=== PATIENT | female | born 1940 | race Caucasian/White ===

== ENCOUNTER 2017-02-10 04:42 | Emergency (ER) | payer OTHER ==
[~2017-02-10] VITALS: Ht 157.5 cm; Wt 75.8 kg
[~2017-02-10 04:42] MED LIST: AMLODIPINE BESY10 MG PO; ANASTROZOLE1 MG PO; CIPRO500 MG PO; EXTRA STRENGTH500 M1 PO; FEOSOL325 MG PO; IMODIUM MS REL1 EACH PO; K-DUR20 MEQ PO; LORTAB 5-325 M1 EACH PO; METOPROLOL TART25 MG PO; PANTOPRAZOLE SO40 MG PO; XANAX0.25 MG PO; XELODA500 MG PO
[2017-02-10 05:52] LABS: HEMATOCRIT 29.4 % (36.0-46.0); MCH 27.6 PG (29.0-34.0); MCV 89.1 FL (83-99); MEAN PLAT.VOLUME 9.9 uM^3 (9.5-12.4); PLATELET COUNT 298 K/uL (156-360); RBC DIS.WIDTH-CV 13.9 % (11.8-14.6); RBC DIS.WIDTH-SD 45.2 % (39-53); WHITE BLOOD COUNT 7.7 K/uL (4.1-10.2)
[2017-02-10 06:01] LABS: CHLORIDE 110 mEq/L (99-109); POTASSIUM 4.1 mEq/L (3.7-5.4); SODIUM 139 mEq/L (136-147)
[2017-02-10 06:02] LABS: INTER. NORMALIZED RATIO 1.1; PROTHROMBIN TIME 11.4 (9.2-11.2); PTT 28.8 (25-32)
[2017-02-10 06:03] LABS: GLUCOSE 148 mg/dL (70-99)
[2017-02-10 06:04] LABS: ANION GAP 11 MEQ/L (2-14)
[2017-02-10 06:05] LABS: TOTAL BILIRUBIN 0.7 mg/dL (0.0-1.0)
[2017-02-10 06:07] LABS: ALKALINE PHOSPHATASE 141 IU/L (3-129); GFR ESTIMATE (CALCULATED) 42 mL/min/
[2017-02-10 06:08] LABS: UREA NITROGEN (BUN) 15 mg/dL (9-23)
[2017-02-10 06:11] LABS: TROP-I INTERPRETATION NEGATIVE; TROPONIN-I 0.04 ng/mL (0.0-0.30)
[2017-02-10 06:34] VITALS: BP 162/85
== END 2017-02-10 07:44 | disposition home or self-care (01) ==
LOC: EME 04:42
PROVIDERS: Emergency Medicine
DX: R04.0 Epistaxis (principal); Z85.3 Personal history of malignant neoplasm of breast
CPT/HCPCS: 80053; 84484; 85027; 85610; 85730; 93005; 99281; 99283

== ENCOUNTER 2017-04-13 17:11 | Inpatient (IN) | payer OTHER ==
[~2017-04-13] VITALS: Ht 157.5 cm; Wt 71.4 kg
[2017-04-13 18:56] LABS: BASOPHIL COUNT 0.1 K/uL (0-0.1); EOSINOPHIL (%) 0.7 % (0-5); EOSINOPHIL COUNT 0.1 K/uL (0-0.3); HEMATOCRIT 34.5 % (36.0-46.0); IMMATURE GRANULOCYTE (%) 0.5 % (0.0-0.7); INSTRUMENT ABS NEUTROPHIL CT 6.8 K/uL; LYMPHOCYTE COUNT 0.6 K/uL (1.0-2.8); MCHC 30.7 G/DL (30.0-36.0); MCV 81.4 FL (83-99); MEAN PLAT.VOLUME 10.3 uM^3 (9.5-12.4); MONOCYTE COUNT 0.7 K/uL (0-0.8); NEUTROPHIL (%) 82.1 % (45-76); NEUTROPHIL COUNT 6.8 K/uL (1.8-6.4); PLATELET COUNT 214 K/uL (156-360); RBC DIS.WIDTH-CV 15.2 % (11.8-14.6); RED BLOOD COUNT 4.24 M/uL (3.80-5.20); WHITE BLOOD COUNT 8.2 K/uL (4.1-10.2)
[2017-04-13 19:05] LABS: CHLORIDE 102 mEq/L (99-109); POTASSIUM 4.2 mEq/L (3.7-5.4); SODIUM 134 mEq/L (136-147)
[2017-04-13 19:06] LABS: INTER. NORMALIZED RATIO 1.3; PROTHROMBIN TIME 13.2 (9.2-11.2); PTT 30.2 (25-32)
[2017-04-13 19:07] LABS: GLUCOSE 123 mg/dL (70-99)
[2017-04-13 19:08] LABS: ANION GAP 10 MEQ/L (2-14)
[2017-04-13 19:11] LABS: GFR ESTIMATE (CALCULATED) 33 mL/min/; UREA NITROGEN (BUN) 20 mg/dL (9-23)
[2017-04-13] MEDS ORDERED: LASIX40 MG PO (23:08)
[2017-04-13] MEDS ORDERED: MORPHINE SULFAT15 MG PO (23:09)
[2017-04-13] MEDS ORDERED: MORPHINE SULFAT15 M1 PO (23:09)
[2017-04-14 06:49] LABS: HEMATOCRIT 33.9 % (36.0-46.0)
[2017-04-14 07:27] LABS: ANION GAP 12 MEQ/L (2-14); CHLORIDE 104 MEQ/L (99-109); GFR ESTIMATE (CALCULATED) 42 mL/min/; SAMPLE HEMOLYSIS CHECK 0; SAMPLE ICTERIC CHECK 0; SAMPLE LIPEMIA CHECK 0; SODIUM 138 MEQ/L (136-147); UREA NITROGEN (BUN) 19 mg/dL (9-23)
[2017-04-14 07:31] LABS: GLUCOSE 78 mg/dL (70-99)
[2017-04-14 07:32] VITALS: BP 127/64
[2017-04-14 10:07] VITALS: BP 138/68
[2017-04-14 11:58] LABS: POINT-OF-CARE METER ID UU14149397
[2017-04-14 12:43] LABS: BASE EXCESS -3.3 mEq/L (-3 to +3); BICARBONATE 22.1 mEq/L (22-26); CARBOXY HGB 1.9 % (0-5); COMMENTS - BLOOD GASES A+C+; METHEMOGLOBIN 1.8 % (0-1.5); PCO2 40 mm Hg (35-45); PO2 80 mm Hg (80-100); SITE RR; pH 7.35 (7.35-7.45)
[2017-04-14 12:44] LABS: DEVICE NC; O2 FLOW 6 L/MIN; TOTAL RESP RATE 20 resp/min
[2017-04-14 17:19] VITALS: BP 130/66
[2017-04-14 19:32] VITALS: BP 139/67
[2017-04-15 00:08] VITALS: BP 145/65
[2017-04-15 04:15] VITALS: BP 130/61
[2017-04-15 07:41] VITALS: BP 144/67
[2017-04-15 11:23] VITALS: BP 133/60
[2017-04-15 11:24] LABS: ANION GAP 12 MEQ/L (2-14); CHLORIDE 104 MEQ/L (99-109); GFR ESTIMATE (CALCULATED) 39 mL/min/; GLUCOSE 95 mg/dL (70-99); POTASSIUM 4.4 MEQ/L (3.7-5.4); SAMPLE HEMOLYSIS CHECK 0; SAMPLE ICTERIC CHECK 0; SAMPLE LIPEMIA CHECK 0; SODIUM 138 MEQ/L (136-147); UREA NITROGEN (BUN) 23 mg/dL (9-23)
[2017-04-15 11:56] LABS: HEMATOCRIT 33.8 % (36.0-46.0); MCH 24.6 PG (29.0-34.0); MCHC 29.3 G/DL (30.0-36.0); MCV 84.1 FL (83-99); MEAN PLAT.VOLUME 10.8 uM^3 (9.5-12.4); PLATELET COUNT 241 K/uL (156-360); RBC DIS.WIDTH-CV 15.2 % (11.8-14.6); RBC DIS.WIDTH-SD 46.3 % (39-53); RED BLOOD COUNT 4.02 M/uL (3.80-5.20); WHITE BLOOD COUNT 11.4 K/uL (4.1-10.2)
[2017-04-15 17:31] VITALS: BP 115/56
[2017-04-15 23:34] VITALS: BP 144/67
[2017-04-16 06:45] LABS: MCH 24.4 PG (29.0-34.0); MCHC 28.8 G/DL (30.0-36.0); MCV 84.6 FL (83-99); PLATELET COUNT 219 K/uL (156-360); RBC DIS.WIDTH-CV 15.4 % (11.8-14.6); RBC DIS.WIDTH-SD 46.5 % (39-53); WHITE BLOOD COUNT 9.9 K/uL (4.1-10.2)
[2017-04-16 07:04] LABS: ANION GAP 12 MEQ/L (2-14); CHLORIDE 104 MEQ/L (99-109); GFR ESTIMATE (CALCULATED) 33 mL/min/; GLUCOSE 70 mg/dL (70-99); POTASSIUM 4.4 MEQ/L (3.7-5.4); SAMPLE HEMOLYSIS CHECK 0; SAMPLE ICTERIC CHECK 0; SAMPLE LIPEMIA CHECK 0; SODIUM 138 MEQ/L (136-147); UREA NITROGEN (BUN) 28 mg/dL (9-23)
[2017-04-16 08:18] VITALS: BP 116/56
[2017-04-16 15:29] VITALS: BP 115/56
[2017-04-17] VITALS: BP 132/58
[2017-04-17 07:36] VITALS: BP 135/62
[2017-04-17 10:20] LABS: ADD MIUA? YES; BILIRUBIN NEGATIVE; BLOOD MODERATE; COLOR YELLOW ((YELLOW)); GLUCOSE (STRIP) NEGATIVE; KETONES NEGATIVE; LEUKOCYTES NEGATIVE; NITRITE NEGATIVE; PROTEIN (STRIP) 30; UROBILINOGEN 0.2 MG/DL (0.2-1.0)
[2017-04-17] MEDS ORDERED: HYOSCYAMINE0.125 MG SL (10:50)
[2017-04-17 10:51] LABS: BACTERIA NONE SEEN /HPF; EPITHELIAL CELLS NONE SEEN /HPF; MUCUS NONE SEEN /LPF; WHITE BLOOD CELLS 0-5 /HPF (0-5)
[2017-04-17 15:50] VITALS: BP 120/58
== END 2017-04-17 16:32 | disposition hospice, home (50) | DRG 542 ==
LOC: EME 17:11 → EDOF 22:32 → 3EAST 22:32
PROVIDERS: Emergency Medicine; Internal Medicine; Nurse Practitioner Acute Care; Nurse Practitioner Family; Physician Assistant
DX: M84.452A Pathological fracture, left femur, initial encounter for fracture (principal); C79.51 Secondary malignant neoplasm of bone; J96.90 Respiratory failure, unspecified, unspecified whether with hypoxia or hypercapnia; N17.9 Acute kidney failure, unspecified; C78.7 Secondary malignant neoplasm of liver and intrahepatic bile duct; I42.9 Cardiomyopathy, unspecified; C50.911 Malignant neoplasm of unspecified site of right female breast; E86.0 Dehydration; F41.9 Anxiety disorder, unspecified; G25.81 Restless legs syndrome; I10 Essential (primary) hypertension; I35.0 Nonrheumatic aortic (valve) stenosis; M19.90 Unspecified osteoarthritis, unspecified site; K21.9 Gastro-esophageal reflux disease without esophagitis; K59.00 Constipation, unspecified; R33.9 Retention of urine, unspecified; Z51.5 Encounter for palliative care; Z66 Do not resuscitate; Z72.0 Tobacco use; R25.1 Tremor, unspecified
CPT/HCPCS: 36600; 71010; 73502; 74176; 80048; 81003; 82803; 82948; 85014; 85018; 85025; 85027; 85610; 85730; 86900; 86901; 93005; 94799; 99281; 99285; J1644; J1940; J2270; J2405; J3010; J7030; J7120